=== PATIENT | male | born 1985 | race African-American/Black ===

== ENCOUNTER 2017-07-02 15:50 | Emergency (ER) | payer BC ==
[~2017-07-02] VITALS: Ht 180.3 cm; Wt 101.3 kg
[~2017-07-02 15:50] MED LIST: BACTRIM,SEPT1 TABLET PO; CIPRO HC OTIC S10 ML RIGHT EAR; KENALOG,ARISTOC80 GM TP; MOTRIN800 MG PO; PROCTOFOAM-HC10 GM PR; ZOFRAN ODT4 MG PO
[2017-07-02 17:15] LABS: HEMATOCRIT 41.8 % (38.0-50.0); MCH 27.6 PG (29.0-34.0); MCV 81.2 FL (86-99); MEAN PLAT.VOLUME 10.3 uM^3 (9.0-12.4); PLATELET COUNT 231 K/uL (156-360); RBC DIS.WIDTH-CV 12.6 % (11.8-14.6); RED BLOOD COUNT 5.15 M/uL (4.00-5.50); WHITE BLOOD COUNT 14.1 K/uL (4.1-10.2)
[2017-07-02 17:23] LABS: CHLORIDE 106 mEq/L (99-109); SODIUM 140 mEq/L (136-147)
[2017-07-02 17:25] LABS: GLUCOSE 98 mg/dL (70-99)
[2017-07-02 17:26] LABS: ANION GAP 11 MEQ/L (2-14)
[2017-07-02 17:27] LABS: TOTAL BILIRUBIN 0.3 mg/dL (0.0-1.0)
[2017-07-02 17:28] LABS: ALKALINE PHOSPHATASE 86 IU/L (3-129)
[2017-07-02 17:29] LABS: GFR ESTIMATE (CALCULATED) > 59 mL/min/
[2017-07-02 17:30] LABS: UREA NITROGEN (BUN) 16 mg/dL (9-23)
[2017-07-02 17:32] LABS: LIPASE 56 U/L (1.0-51.0)
[2017-07-02 18:06] LABS: ADD MIUA? NO; BILIRUBIN NEGATIVE; BLOOD NEGATIVE; COLOR YELLOW ((YELLOW)); GLUCOSE (STRIP) NEGATIVE; KETONES NEGATIVE; LEUKOCYTES NEGATIVE; NITRITE NEGATIVE; PROTEIN (STRIP) NEGATIVE; SPECIFIC GRAVITY 1.019 (1.000-1.030); UROBILINOGEN 0.2 MG/DL (0.2-1.0)
[2017-07-02 19:43] LABS: UCUL ADDED? NO
[2017-07-02] MEDS ORDERED: ZOFRAN ODT4 MG PO (20:10)
[2017-07-02] MEDS ORDERED: NORCO 5/3251 TABLET PO (20:10)
[2017-07-02] MEDS ORDERED: BENTYL20 MG PO (20:11)
[2017-07-02 20:36] VITALS: BP 142/89
== END 2017-07-02 20:37 | disposition home or self-care (01) ==
LOC: EME 15:50
DX: K82.8 Other specified diseases of gallbladder (principal); K76.0 Fatty (change of) liver, not elsewhere classified; J45.909 Unspecified asthma, uncomplicated; F17.200 Nicotine dependence, unspecified, uncomplicated
CPT/HCPCS: 76705; 80053; 81003; 83690; 85027; 99281; 99284